=== PATIENT | female | born 1990 | race Caucasian/White ===

== ENCOUNTER 2016-10-29 13:29 | Emergency (ER) | payer MEDICAID, OTHER ==
[~2016-10-29] VITALS: Ht 162.6 cm; Wt 67.1 kg
[2016-10-29 14:54] VITALS: BP 135/76
[2016-10-29] MEDS ORDERED: traMADol HCL 50 MG TAB PO ONE (15:15)
[2016-10-29 15:25] LABS: Urine Bilirubin Negative (Negative); Urine Blood Negative /uL (Negative); Urine Color Yellow (Yellow); Urine Glucose Normal (Normal); Urine Mucus FEW (None Seen); Urine Nitrite Negative (Negative); Urine RBC <1 /hpf (0 - 4); Urine Squamous Epithelial Cell FEW /hpf (<5); Urine pH 5.5 (5.0-8.0)
[2016-10-29 15:30] LABS: Urine Ketone 4+ (Negative)
== END 2016-10-29 15:22 | disposition home or self-care (01) ==
LOC: ER 13:29
DX: G89.4 Chronic pain syndrome (principal); Z76.5 Malingerer [conscious simulation]; F17.210 Nicotine dependence, cigarettes, uncomplicated; F12.10 Cannabis abuse, uncomplicated; Z87.11 Personal history of peptic ulcer disease
CPT/HCPCS: 81001; 93005

== ENCOUNTER 2017-07-21 02:10 | Emergency (ER) | payer MEDICAID ==
[~2017-07-21] VITALS: Ht 162.6 cm; Wt 78.0 kg
[2017-07-21 02:15] VITALS: BP 112/55
== END 2017-07-21 02:30 | disposition left against medical advice (07) ==
LOC: ER 02:10
DX: R42 Dizziness and giddiness (principal); R55 Syncope and collapse; Z53.21 Procedure and treatment not carried out due to patient leaving prior to being seen by health care provider
CPT/HCPCS: 93005